=== PATIENT | female | born 2000 | race Caucasian/White ===

== ENCOUNTER 2021-06-18 17:13 | Emergency (ER) | payer OTHER ==
[~2021-06-18] VITALS: Ht 170.2 cm; Wt 61.7 kg
[2021-06-18 17:19] VITALS: BP 133/79
[2021-06-18] MEDS ORDERED: ZOFRAN ODT4 MG PO (20:28)
== END 2021-06-18 20:50 | disposition home or self-care (01) ==
LOC: ER 17:13
DX: S06.0X9A Concussion with loss of consciousness of unspecified duration, initial encounter (principal); X58.XXXA Exposure to other specified factors, initial encounter; Y93.89 Activity, other specified; Y92.89 Other specified places as the place of occurrence of the external cause; Y99.8 Other external cause status